=== PATIENT | female | born 1995 | race American Indian/Alaskan Native ===

== ENCOUNTER 2016-12-28 14:26 | Inpatient (IN) | payer MEDICAID ==
[2016-12-28] MEDS ORDERED: SUBLIMAZE IV PRN (16:48)
[2016-12-28] MEDS ORDERED: BRETHINE SUB-Q PRN (16:48)
[2016-12-28] MEDS ORDERED: STADOL IV PRN (16:48)
[2016-12-28] MEDS ORDERED: PHENERGAN PR PRN (16:48)
[2016-12-28] MEDS ORDERED: ePHEDrine SULFATE IV PRN (16:48)
[2016-12-28] MEDS ORDERED: BRETHINE IVP PRN (16:48)
[2016-12-28] MEDS ORDERED: ZOFRAN IV PRN (16:48)
--- NOTE | 2016-12-28 16:57 | History and Physical Report ---
History of Present Illness Date of examination: 12/28/16 Date of admission: 12/28/16 14:26 Chief complaint: 21 yo G1 at 41wk and 1 d admitted for induction for oligohydramnios (SANDRA=5) and IUGD with EFW at 10% 5#7oz. She is a recent transfer of care from [place]. AB pos, Rub Imm and GBS pos (in urine in this ). 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 Weight (lb): 168 BMI: 28.9 Pre- Weight: 130 BP: 110/ 60 mm Hg Chief Complaint/Current Status: New patient presents for missed period, she has no complaints...Candy Alexandra Menstrual History Regularity: regular Menses every: 28 days Duration: 5 LMP: 03/20/2016 LMP reliability: month known LMP character: normal test type: urine test Date: 12/03/2016 BC at conception: none Planned ? no EDC Calculations LMP: 12/25/2016 EDC Confirmation: 12/20/2016 Gestational Age: 37 4/7 weeks Past History : 1 Term Births: 0 Premature Births: 0 Living Children: 0 Para: 0 Mult. Births: 0 Prev : 0 Prev. attempt? 0 Aborta: 0 Elect. Ab: 0 Spont. 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 of genital herpes: no Genetic History Congenital Heart Defect: Mom: no Dad: no [place] Disease: Mom: no Dad: no Thalassemia Mom: no Dad: no Neural Tube Defect Mom: no Dad: no Down's Syndrome Mom: no Dad: no Sergei-Sachs Mom: no Dad: no Sickle Cell Disease/Trait Mom: no Dad: no Hemophilia Mom: no Dad: no Muscular Dystrophy Mom: no Dad: no Cystic Fibrosis Mom: no Dad: no Lewis Chorea Mom: no Dad: no Mental Retardation Mom: no Dad: no Fragile X Mom: no Dad: no Other Genetic/Chromosomal Disorder Mom: no Dad: no Child w/other defect Mom: no Dad: no Active Medications (reviewed today): VITAMINS TABS ( VIT-FE FUMARATE-FA TABS) Current Allergies (reviewed today): No known allergies Laboratory Results Date/Time Collected: 12/03/2016 Urine HCG: positive Review of Systems General Complains of fatigue. Denies fever, chills, sweats, anorexia, weakness, malaise, weight loss and sleep disorder. Complains of pelvic pain. Denies vaginal discharge, incontinence, dysuria, hematuria, urinary frequency, amenorrhea, menorrhagia, abnormal vaginal bleeding, genital sores, decreased libido, painful periods, painful sex, urinary urgency, hot flashes, vaginal dryness, vaginal itching and vaginal odor. CV Denies chest pains, palpitations, syncope, dyspnea on exertion, orthopnea, PND and peripheral edema. Resp Denies cough, dyspnea at rest, excessive sputum, hemoptysis, wheezing and pleurisy. GI Complains of abdominal pain and gas/bloating. Denies nausea, vomiting, diarrhea, constipation, change in bowel habits, melena, hematochezia, jaundice, indigestion/heartburn, dysphagia and odynophagia. Breast Denies left breast lump, right breast lump, nipple discharge, bloody discharge from nipple, breast pain, abnormal mammogram and breast enlargement. Psych Denies depression, anxiety, irritability and mood swings. PHYSICAL EXAM HEENT: normocephalic, no lesions or deformities Neck/Thyroid: supple, thyroid normal Skin no significant abnormal lesions or rashes Chest: respiratory effort normal, clear to auscultation Breasts: skin/areolae normal, no masses, no nipple discharge, no erythema/warmth /tenderness, and axillae normal. 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 Vulva/Vagina: No lesions, normal BUS, normal rugae Cervix: No lesions; no cervical motion tenderness Fundal Ht: 37 size: AGA FHT: 140s activity: + Adnexae: Unable to palpate due to uterine size Rectovaginal: exam defered Flowsheet View for Follow-up Visit Estimated weeks of gestation: 37 4/7 Weight: 168 Blood pressure: 110 / 60 Fundal height: 37 FHR: 140s Current OB Labs Hgb: 11.1 (07/06/2016) Hct: 34.8 (07/06/2016) Platelets: 383 (07/06/2016) Rubella: immune (07/06/2016) RPR: nonreactive (07/06/2016) Hep B Surface Antigen: negative (07/06/2016) HIV: negative (07/06/2016) 1 Hour GTT: 117 (09/29/2016) 32-36 Week Labs Group B Strep: negative (09/29/2016) 's Physician: undecided Education Provided: 1) Education provided today and information packet given. 2) Recommended and enrolled in the Young Parenting Program. 3) Advice on healthy diet for reviewed and information provided. 4) Stressed importance of taking folic acid and vitamins. 5) Hazards of smoking and reviewed; smoking cessation strongly encouraged and smoking cessation techniques reviewed. 6) Stressed the risks of alcohol and drug use in including risk of premature delivery, small baby (SGA), abruption, and . 7) Counseled on HIV testing. 8) No work restrictions at this time. 9) Patient agrees that all care provided and delivery performed only at [facility]. 10) Patient recieved guide book and encouraged to read. 11) Patient understands she will be delivered by the MD/CNM informatics physician liaison for the practice. Impression & Recommendations: Problem # 1: Supervision of with insufficient care, third trimester (ICD-V23.7) (STO82-K08.33) Assessment: New Past History - Obstetrical History : 1 Medications and Allergies Allergies Allergy/AdvReac Type Severity Reaction Status Date / Time No Known Allergies Allergy Unverified 12/28/16 15:30 Active Meds: Active Medications Influenza Virus Vaccine Quadrival (Fluarix Quad 8055-1316(36 Mos+)) 0.5 ml IM .ONCE ONE Stop: 12/29/16 12:01 - Vital Signs Vital signs: Vital Signs Pulse Pulse Ox 104 H 98 12/28/16 15:30 12/28/16 15:30 Temp Pulse Resp BP Pulse Ox 97.6 F 93 H 16 112/68 97 12/28/16 15:59 12/28/16 16:50 12/28/16 15:59 12/28/16 16:03 12/28/16 16:50 Results All other labs normal. Assessment and Plan - Patient Problems (1) GBS (group B streptococcus) UTI complicating Current Visit: Yes Status: Acute Qualifiers: Trimester: T (2) with 41 completed weeks gestation Current Visit: Yes Status: Acute (3) IUGR (intrauterine growth restriction) Current Visit: Yes Status: Acute (4) Oligohydramnios in mahajan in third trimester Current Visit: Yes Status: Acute
[2016-12-28] MEDS ORDERED: PITOCin/NS 20 UNIT/1000ML DRIP 20 UNITS/1,000 ML BAG IV SCH (17:00)
[2016-12-28] MEDS ORDERED: MINERAL OIL PO PRN (17:08)
[2016-12-28 17:59] LABS: Hemoglobin 10.9 gm/dl (10.1-14.3); Mean Corpuscular HGB Conc 33 % (30-34); Mean Corpuscular Hemoglobin 27 pg (28-32); Mean Corpuscular Volume 83 fl (79-97); Platelet Count 292 K/mm3 (140-440); Red Blood Count 4.01 M/mm3 (3.65-5.03); Red Cell Distribution Width 14.9 % (13.2-15.2); White Blood Count 9.5 K/mm3 (4.5-11.0)
[2016-12-28] MEDS ORDERED: CERVIDIL VG ONE (18:00)
[2016-12-28] MEDS ORDERED: XYLOCAINE 2% INFILTRATI ONE (18:00)
[2016-12-28] MEDS ORDERED: PITOCin/NS 30 UNIT/500ML 30 UNITS/500 ML BAG IV SCH (18:00)
[2016-12-28] MEDS: LACTATED RINGERS 1,000 ML IV SCH (19:30)
[2016-12-28] MEDS ORDERED: POLYCILLIN/NS 1 GM/50 ML 1 GM/50 ML BAG IV SCH (20:50)
[2016-12-28] MEDS ORDERED: AMBIEN PO PRN (23:03)
[2016-12-29] MEDS ORDERED: POLYCILLIN/NS 2 GM/100 ML 2 GM/100 ML BAG IV ONE (00:15)
[2016-12-29] MEDS: LACTATED RINGERS 1,000 ML IV SCH ×2 (02:19→03:37)
--- NOTE | 2016-12-29 03:18 | Anesthesia Consultation ---
Anesthesia Consult and Med Hx Date of service: 12/29/16 - Airway Anesthetic Teeth Evaluation: Good ROM Head & Neck: Adequate Mental/Hyoid Distance: Adequate Mallampati Class: Class II Intubation Access Assessment: Probably Good - Pulmonary Exam CTA: Yes - Cardiac Exam Cardiac Exam: RRR - Pre-Operative Health Status ASA Pre-Surgery Classification: ASA2 Proposed Anesthetic Plan: Epidural - Pulmonary Hx Asthma: No COPD: No Hx Pneumonia: No - Cardiovascular System Hx Hypertension: No - Central Nervous System Hx Seizures: No Hx Psychiatric Problems: No - Endocrine Hx Renal Disease: No Hx End Stage Renal Disease: No Hx Hypothyroidism: No Hx Hyperthyroidism: No - Hematic Hx Anemia: No Hx Sickle Cell Disease: No - Other Systems Hx Alcohol Use: No
[2016-12-29] MEDS ORDERED: NARCAN 2 MG/2 ML IV PRN (03:19)
[2016-12-29] MEDS ORDERED: ePHEDrine SULFATE IV PRN (03:19)
[2016-12-29] MEDS ORDERED: ePHEDrine SULFATE ONE (03:31)
[2016-12-29] MEDS ORDERED: fentaNYL-BUPIV 2 MCG/ML-0.125% 200 MCG/100 ML BAG EPIDURAL SCH (04:00)
--- NOTE | 2016-12-29 06:40 | Progress Note ---
Assessment and Plan Pt comfortable with epidural SVE 9,C,0 ISE applied. Maternal HR 130-140 Pt states she is just very anxious. BP 130/70 Cat 1 strip Pit @ 6mu Anticipate delivery Subjective - Subjective Date of service: 12/29/16 (maternal tachycardia) Patient reports: movement normal Objective - Vital Signs Vital Signs: Vital Signs - 12hr 12/28/16 12/28/16 12/28/16 19:25 19:30 19:35 Temperature Pulse Rate 115 H 119 H 113 H Respiratory Rate Blood Pressure Blood Pressure [Right] O2 Sat by Pulse 98 97 99 Oximetry 12/28/16 12/28/16 12/28/16 19:40 19:43 19:45 Temperature 97.7 F Pulse Rate 119 H 115 H 117 H Respiratory Rate Blood Pressure Blood Pressure 122/60 [Right] O2 Sat by Pulse 97 97 Oximetry 12/28/16 12/28/16 12/28/16 19:48 19:50 19:55 Temperature Pulse Rate 109 H 114 H 111 H Respiratory Rate Blood Pressure 122/60 Blood Pressure [Right] O2 Sat by Pulse 98 97 Oximetry 12/28/16 12/28/16 12/28/16 20:00 20:05 20:10 Temperature Pulse Rate 115 H 115 H 114 H Respiratory Rate Blood Pressure Blood Pressure [Right] O2 Sat by Pulse 98 98 97 Oximetry 12/28/16 12/28/16 12/28/16 20:15 20:18 20:20 Temperature Pulse Rate 119 H 121 H 112 H Respiratory Rate Blood Pressure 113/58 Blood Pressure [Right] O2 Sat by Pulse 96 97 Oximetry 12/28/16 12/28/16 12/28/16 20:25 20:30 20:35 Temperature Pulse Rate 115 H 111 H 115 H Respiratory Rate Blood Pressure Blood Pressure [Right] O2 Sat by Pulse 97 96 97 Oximetry 12/28/16 12/28/16 12/28/16 20:40 20:45 20:49 Temperature Pulse Rate 112 H 118 H 113 H Respiratory Rate Blood Pressure 121/65 Blood Pressure [Right] O2 Sat by Pulse 98 97 Oximetry 12/28/16 12/28/16 12/28/16 20:50 20:55 21:00 Temperature Pulse Rate 118 H 115 H 106 H Respiratory Rate Blood Pressure Blood Pressure [Right] O2 Sat by Pulse 98 97 97 Oximetry 10/12/28/16 12/28/16 21:05 21:10 21:25 Temperature Pulse Rate 114 H 116 H 111 H Respiratory Rate Blood Pressure Blood Pressure [Right] O2 Sat by Pulse 98 98 97 Oximetry 12/28/16 12/28/16 12/28/16 21:30 21:35 21:40 Temperature Pulse Rate 114 H 111 H 111 H Respiratory Rate Blood Pressure Blood Pressure [Right] O2 Sat by Pulse 97 97 97 Oximetry 12/28/16 12/28/16 12/28/16 21:45 21:50 21:54 Temperature Pulse Rate 110 H 118 H 115 H Respiratory Rate Blood Pressure 129/83 Blood Pressure [Right] O2 Sat by Pulse 97 97 Oximetry 12/28/16 12/28/16 12/28/16 21:55 22:00 22:05 Temperature Pulse Rate 124 H 115 H 114 H Respiratory Rate Blood Pressure Blood Pressure [Right] O2 Sat by Pulse 97 98 98 Oximetry 12/28/16 12/28/16 12/28/16 22:10 22:15 22:20 Temperature Pulse Rate 114 H 107 H 112 H Respiratory Rate Blood Pressure Blood Pressure [Right] O2 Sat by Pulse 97 97 97 Oximetry 12/28/16 12/28/16 12/28/16 22:25 22:30 22:35 Temperature Pulse Rate 115 H 106 H 106 H Respiratory Rate Blood Pressure Blood Pressure [Right] O2 Sat by Pulse 97 96 96 Oximetry 12/28/16 12/28/16 12/28/16 22:40 22:45 22:50 Temperature Pulse Rate 107 H 102 H 107 H Respiratory Rate Blood Pressure Blood Pressure [Right] O2 Sat by Pulse 97 97 97 Oximetry 12/28/16 12/28/16 12/28/16 22:53 22:55 23:00 Temperature Pulse Rate 107 H 112 H 106 H Respiratory Rate Blood Pressure 128/81 Blood Pressure [Right] O2 Sat by Pulse 98 98 Oximetry 12/28/16 12/28/16 12/28/16 23:05 23:10 23:15 Temperature Pulse Rate 111 H 115 H 108 H Respiratory Rate Blood Pressure Blood Pressure [Right] O2 Sat by Pulse 96 96 97 Oximetry 12/28/16 12/28/16 12/28/16 23:20 23:25 23:30 Temperature Pulse Rate 102 H 109 H 104 H Respiratory Rate Blood Pressure Blood Pressure [Right] O2 Sat by Pulse 97 97 96 Oximetry 12/28/16 12/28/16 12/28/16 23:35 23:40 23:45 Temperature Pulse Rate 100 H 102 H 110 H Respiratory Rate Blood Pressure Blood Pressure [Right] O2 Sat by Pulse 98 97 95 Oximetry 12/28/16 12/28/16 12/28/16 23:50 23:53 23:55 Temperature Pulse Rate 105 H 105 H 103 H Respiratory Rate Blood Pressure 116/57 Blood Pressure [Right] O2 Sat by Pulse 96 94 97 Oximetry 12/29/16 12/29/16 12/29/16 00:00 00:05 00:10 Temperature Pulse Rate 114 H 111 H 113 H Respiratory Rate Blood Pressure Blood Pressure [Right] O2 Sat by Pulse 97 96 98 Oximetry 12/29/16 12/29/16 12/29/16 00:15 00:18 00:20 Temperature Pulse Rate 111 H 112 H Respiratory 18 Rate Blood Pressure Blood Pressure [Right] O2 Sat by Pulse 96 97 Oximetry 12/29/16 12/29/16 12/29/16 00:25 00:26 00:30 Temperature Pulse Rate 108 H 107 H 106 H Respiratory Rate Blood Pressure Blood Pressure [Right] O2 Sat by Pulse 95 94 95 Oximetry 12/29/16 12/29/16 12/29/16 00:32 00:35 00:38 Temperature Pulse Rate 101 H 111 H 99 H Respiratory Rate Blood Pressure Blood Pressure [Right] O2 Sat by Pulse 94 95 94 Oximetry 12/29/16 12/29/16 12/29/16 00:40 00:43 00:45 Temperature Pulse Rate 110 H 107 H 101 H Respiratory Rate Blood Pressure Blood Pressure [Right] O2 Sat by Pulse 95 94 96 Oximetry 12/29/16 12/29/16 12/29/16 00:50 00:51 00:55 Temperature Pulse Rate 107 H 111 H 108 H Respiratory Rate Blood Pressure Blood Pressure [Right] O2 Sat by Pulse 96 93 96 Oximetry 12/29/16 12/29/16 12/29/16 01:00 01:05 01:10 Temperature Pulse Rate 110 H 105 H 113 H Respiratory Rate Blood Pressure Blood Pressure [Right] O2 Sat by Pulse 99 99 98 Oximetry 12/29/16 12/29/16 12/29/16 01:15 01:20 01:34 Temperature Pulse Rate 109 H 111 H 111 H Respiratory Rate Blood Pressure Blood Pressure [Right] O2 Sat by Pulse 99 99 98 Oximetry 12/29/16 12/29/16 12/29/16 01:45 01:50 01:55 Temperature Pulse Rate 116 H 110 H 94 H Respiratory Rate Blood Pressure Blood Pressure [Right] O2 Sat by Pulse 95 99 100 Oximetry 12/29/16 12/29/16 12/29/16 02:00 02:05 02:10 Temperature Pulse Rate 106 H 111 H 99 H Respiratory Rate Blood Pressure Blood Pressure [Right] O2 Sat by Pulse 100 99 99 Oximetry 12/29/16 12/29/16 12/29/16 02:15 02:20 02:25 Temperature Pulse Rate 100 H 104 H 113 H Respiratory Rate Blood Pressure Blood Pressure [Right] O2 Sat by Pulse 99 100 99 Oximetry 12/29/16 12/29/16 12/29/16 02:30 02:35 02:40 Temperature Pulse Rate 113 H 103 H 115 H Respiratory Rate Blood Pressure Blood Pressure [Right] O2 Sat by Pulse 99 100 100 Oximetry 12/29/16 12/29/16 12/29/16 02:45 02:50 02:55 Temperature Pulse Rate 109 H 111 H 108 H Respiratory Rate Blood Pressure Blood Pressure [Right] O2 Sat by Pulse 99 99 97 Oximetry 12/29/16 12/29/16 12/29/16 03:00 03:05 03:07 Temperature Pulse Rate 122 H 123 H 108 H Respiratory Rate Blood Pressure 140/86 145/96 Blood Pressure [Right] O2 Sat by Pulse 100 100 Oximetry 12/29/16 12/29/16 12/29/16 03:09 03:10 03:11 Temperature Pulse Rate 111 H 111 H 118 H Respiratory Rate Blood Pressure 147/77 149/72 Blood Pressure [Right] O2 Sat by Pulse 100 Oximetry 12/29/16 12/29/16 12/29/16 03:13 03:15 03:17 Temperature Pulse Rate 116 H 117 H 125 H Respiratory Rate Blood Pressure 148/72 154/97 154/84 Blood Pressure [Right] O2 Sat by Pulse 100 Oximetry 12/29/16 12/29/16 12/29/16 03:19 03:20 03:21 Temperature Pulse Rate 129 H 136 H 131 H Respiratory Rate Blood Pressure 137/65 132/61 Blood Pressure [Right] O2 Sat by Pulse 100 Oximetry 12/29/16 12/29/16 12/29/16 03:23 03:25 03:27 Temperature Pulse Rate 121 H 119 H 118 H Respiratory Rate Blood Pressure 120/58 102/52 100/54 Blood Pressure [Right] O2 Sat by Pulse 100 Oximetry 12/29/16 12/29/16 12/29/16 03:29 03:30 03:31 Temperature Pulse Rate 114 H 120 H 123 H Respiratory Rate Blood Pressure 121/56 106/52 Blood Pressure [Right] O2 Sat by Pulse 99 Oximetry 12/29/16 12/29/16 12/29/16 03:33 03:35 03:37 Temperature Pulse Rate 120 H 107 H 115 H Respiratory Rate Blood Pressure 124/59 124/59 124/72 Blood Pressure [Right] O2 Sat by Pulse 99 Oximetry 12/29/16 12/29/16 12/29/16 03:39 03:40 03:41 Temperature Pulse Rate 114 H 118 H 111 H Respiratory Rate Blood Pressure 127/73 144/75 Blood Pressure [Right] O2 Sat by Pulse 100 Oximetry 12/29/16 12/29/16 12/29/16 03:43 03:45 03:47 Temperature Pulse Rate 109 H 101 H 108 H Respiratory Rate Blood Pressure 139/71 133/72 130/69 Blood Pressure [Right] O2 Sat by Pulse 99 Oximetry 12/29/16 12/29/16 12/29/16 03:49 03:50 03:51 Temperature Pulse Rate 117 H 115 H 118 H Respiratory Rate Blood Pressure 127/68 125/61 Blood Pressure [Right] O2 Sat by Pulse 99 Oximetry 12/29/16 12/29/16 12/29/16 03:55 04:00 04:05 Temperature Pulse Rate 107 H 97 H 112 H Respiratory Rate Blood Pressure Blood Pressure [Right] O2 Sat by Pulse 99 99 99 Oximetry 12/29/16 12/29/16 12/29/16 04:10 04:15 04:20 Temperature Pulse Rate 101 H 99 H 112 H Respiratory Rate Blood Pressure Blood Pressure [Right] O2 Sat by Pulse 99 99 99 Oximetry 12/29/16 12/29/16 12/29/16 04:21 04:25 04:30 Temperature Pulse Rate 110 H 105 H 103 H Respiratory Rate Blood Pressure 105/59 Blood Pressure [Right] O2 Sat by Pulse 99 99 Oximetry 12/29/16 12/29/1617 04:35 04:40 04:45 Temperature Pulse Rate 143 H 150 H 146 H Respiratory Rate Blood Pressure Blood Pressure [Right] O2 Sat by Pulse 99 100 99 Oximetry 12/29/16 12/29/16 12/29/16 04:50 04:51 04:52 Temperature Pulse Rate 124 H 148 H 142 H Respiratory Rate Blood Pressure 119/62 105/54 Blood Pressure [Right] O2 Sat by Pulse 100 Oximetry 12/29/16 12/29/16 12/29/16 04:55 05:00 05:05 Temperature Pulse Rate 129 H 130 H 131 H Respiratory Rate Blood Pressure Blood Pressure [Right] O2 Sat by Pulse 99 99 100 Oximetry 12/29/16 12/29/16 12/29/16 05:10 05:15 05:20 Temperature Pulse Rate 143 H 133 H 127 H Respiratory Rate Blood Pressure Blood Pressure [Right] O2 Sat by Pulse 100 100 100 Oximetry 12/29/16 12/29/16 12/29/16 05:21 05:25 05:30 Temperature Pulse Rate 134 H 119 H 126 H Respiratory Rate Blood Pressure 131/73 Blood Pressure [Right] O2 Sat by Pulse 99 100 Oximetry 12/29/16 12/29/16 12/29/16 05:35 05:40 05:45 Temperature Pulse Rate 128 H 126 H 159 H Respiratory Rate Blood Pressure Blood Pressure [Right] O2 Sat by Pulse 99 99 100 Oximetry 12/29/16 12/29/16 12/29/16 05:50 05:53 05:55 Temperature Pulse Rate 164 H 146 H 163 H Respiratory Rate Blood Pressure 134/76 Blood Pressure [Right] O2 Sat by Pulse 100 100 Oximetry 12/29/16 12/29/16 12/29/16 06:00 06:05 06:10 Temperature Pulse Rate 127 H 134 H 128 H Respiratory Rate Blood Pressure Blood Pressure [Right] O2 Sat by Pulse 100 100 100 Oximetry 12/29/16 12/29/16 12/29/16 06:15 06:20 06:23 Temperature Pulse Rate 131 H 124 H 129 H Respiratory Rate Blood Pressure 131/79 Blood Pressure [Right] O2 Sat by Pulse 99 99 Oximetry 12/29/16 12/29/16 12/29/16 06:25 06:30 06:35 Temperature Pulse Rate 131 H 122 H 127 H Respiratory Rate Blood Pressure Blood Pressure [Right] O2 Sat by Pulse 99 99 99 Oximetry - Exam Breasts: deferred Cardiovascular: Regular rate Lungs: Normal air movement Abdomen: Present: normal appearance, soft. Absent: distention, tenderness Uterus: Present: normal FHR: auscultation normal, category 1 Uterine Contraction Monitor Mode: Internal Cervical Dilatation: 9 (ISE applied) Cervical Effacement Percentage: 100 station: 0 Uterine Contraction Pattern: Regular Uterine Tone Measurement Phase: Resting Uterine Contraction Intensity: Moderate Extremities: normal Deep Tendon Reflex Grade: Normal +2 - Labs Labs: Abnormal Labs 12/28/16 15:12 MCH 27 L Laboratory Results - last 24 hr 12/28/16 12/28/16 15:12 15:12 WBC 9.5 RBC 4.01 Hgb 10.9 Hct 33.0 MCV 83 MCH 27 L MCHC 33 RDW 14.9 Plt Count 292 Blood Type AB POSITIVE Antibody Screen Negative
[2016-12-29] MEDS ORDERED: BENADRYL PO PRN (07:25)
[2016-12-29] MEDS ORDERED: NORCO 5/325 PO PRN (07:25)
[2016-12-29] MEDS ORDERED: TUCKS PAD TP PRN (07:25)
[2016-12-29] MEDS ORDERED: PERCOCET 5/325 PO PRN (07:25)
[2016-12-29] MEDS ORDERED: TYLENOL PO PRN (07:25)
[2016-12-29] MEDS ORDERED: PHENERGAN PO PRN (07:25)
[2016-12-29] MEDS ORDERED: LANSINOH TP PRN (07:25)
--- NOTE | 2016-12-29 07:33 | Procedure Note ---
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 Estimated blood loss: 300cc - Vaginal Delivery presentation: vertex Delivery position: OA Intrapartum events: PROM->1hr before delivery, mult.variable deceleratio, other( please specify) (IUGR ; [place]) Delivery induction: oxytocin Delivery augmentation: pitocin Delivery monitor: external uterine, internal FHT Route of delivery: Delivery placenta: spontaneous Delivery cord: nuchal cord Episiotomy: midline Delivery laceration: 2nd degree Delivery repair: vicryl Anesthesia: epidural Delivery comments: live born male over second degree episiotomy Baby to mom's abdomen skin to skin Cord clamped and cut Placenta and membrane delivered complete and intact, 3 vessel cord. Pit IVFs. Repair with 3-0 vicryl in usual fashion. 8/9, EBL 300, Wgt 5-13. Mom and baby remain LDR stable. - Infant A at 1 minute: 8 at 5 minutes: 9 Infant Gender: Male (wgt 5-13)
[2016-12-29] MEDS ORDERED: MOTRIN PO SCH (08:00)
[2016-12-29] MEDS ORDERED: SODIUM CHLORIDE FLUSH SYRINGE 10 ML IV NR (08:00)
[2016-12-29] MEDS ORDERED: DULCOLAX PR PRN (10:00)
[2016-12-29] MEDS: PRENATAL VITAMIN PO SCH (10:36)
[2016-12-29] MEDS: COLACE PO SCH ×2 (10:36→22:26)
[2016-12-29] MEDS: MOTRIN PO SCH ×2 (10:50→22:26)
[2016-12-29] MEDS ORDERED: Fluarix Quad 2017-2018(36 MOS+) IM ONE (12:00)
[2016-12-29 19:57] LABS: Hematocrit 28.4 % (30.3-42.9); Hemoglobin 9.3 gm/dl (10.1-14.3)
[2016-12-29] MEDS ORDERED: MILK OF MAGNESIA PO PRN (22:00)
[2016-12-30] MEDS ORDERED: BOOSTRIX IM ONE (06:00)
--- NOTE | 2016-12-30 08:00 | Progress Note ---
Assessment and Plan patient doing well this morning, no complaints. Family at bedside with . Lochia scant, afebrile, pulse tachycardic in the low 100's, b/p mostly normal with one outlier of 146/87. H&H 9.3/28.4, asymptomatic for anemia d/t blood loss - acute, patient without difficulty. desires d/c home today, will continue to monitor vital signs, can d/c home if stable. - Patient Problems (1) Spontaneous vaginal delivery Current Visit: Yes Status: Acute Subjective - Subjective Date of service: 12/30/16 Principal diagnosis: day #1 s/p Patient reports: appetite normal, voiding normally, pain well controlled, ambulating normally, no dizzy ambulation, no nauseated : doing well, nursing well Objective - Vital Signs Latest vital signs: Vital Signs Temp Pulse Resp BP BP Pulse Ox 12/30/16 05:54 18 12/30/16 01:48 98.8 F 111 H 20 115/74 12/29/16 17:10 98.3 F 90 19 146/87 12/29/16 09:31 98.2 F 113 H 18 106/57 98 12/29/16 08:37 124 H 97 12/29/16 08:32 127 H 97 12/29/16 08:27 125 H 98 12/29/16 08:24 127 H 135/81 12/29/16 08:22 98.9 F 125 H 14 135/81 98 12/29/16 08:21 126 H 135/78 12/29/16 08:17 130 H 97 12/29/16 08:12 129 H 96 12/29/16 08:07 136 H 97 12/29/16 08:02 130 H 97 12/29/16 07:57 132 H 98 Intake and Output 12/29/16 12/29/16 12/30/16 15:59 23:59 07:59 Intake Total 240 240 Output Total 350 Balance -110 240 Intake: Oral 240 120 Intake, Free Water 120 Output: Urine 350 Void 350 Other: Total, Intake Amount 240 120 Total, Output Amount 350 # Voids Void 1 - Exam Breasts: Present: normal, Cardiovascular: Present: Regular rate Lungs: Present: Clear to auscultation, Normal air movement Abdomen: Present: normal appearance, soft Vulva: both: atrophy Uterus: Present: normal, firm, fundal height at umbilicus Extremities: Present: normal Deep Tendon Reflex Grade: Normal +2 Incision: Present: normal, dry, intact - Labs Labs: Abnormal lab results 12/29/16 Range/Units 19:30 Hgb 9.3 L (10.1-14.3) gm/dl Hct 28.4 L (30.3-42.9) %
--- NOTE | 2016-12-30 08:05 | Discharge Summary ---
Providers - Providers Date of Admission: 12/28/16 14:26 Date of discharge: 12/30/16 (patient desired d/c home) Attending physician: CLAUDE MARVIN Primary care physician: CLAUDE MARVIN Hospitalization Reason for admission: active labor Delivery: Episiotomy: midline Incision: normal, dry, intact Other procedures: none complications: none Discharge diagnosis: IUP at term delivered [place] baby: male Hospital course: uncomplicated vaginal Condition at discharge: Good Disposition: DC-01 TO HOME OR SELFCARE - Discharge Diagnoses (1) Spontaneous vaginal delivery Status: Acute Plan - Discharge Medications Prescriptions: Ibuprofen [Motrin 800 MG tab] 800 mg PO Q8HR PRN #30 tablet PRN Reason: Pain Lidocain2.5%/Prilocai2.5% [Emla] 5 gm TP ONCE PRN #1 tube PRN Reason: Pain - Provider Discharge Summary Activity: routine, no sex for 6 weeks, no heavy lifting 4 weeks, no strenuous exercise Diet: routine Instructions: routine Additional instructions: [] Smoking cessation referral if applicable(refer to patient education folder for contact #) [] Refer to [facility]'s [facility] Booklet Call your doctor immediately for: * Fever > 100.5 * Heavy vaginal bleeding ( >1 pad per hour) * Severe persistent headache * Shortness of breath * Reddened, hot, painful area to leg or breast * Drainage or odor from incision. * Keep incision clean and dry at all times and follow doctor's instructions regarding bathing/showering - Follow up plan Follow up: CLAUDE MARVIN MD [Primary Care Provider] - 7 Days (Congratulations!! Please call [phone] to schedule your son's circumcision in 1 week and your visit in 4 weeks. Bring EMLA cream to your son's appointment and await futher instructions. Call for any questions or concerns. )
--- NOTE | 2016-12-30 11:00 | Progress Note ---
Subjective Date of service: 12/30/16 Principal diagnosis: day #1 s/p Interval history: 1st day after normal vaginal delivery Patient is in the bed, comfortable. Pain is well controlled with pain meds. Ambulated well. No residual neurological deficit. No anesthesia complications Objective - Constitutional Vitals: Vital Signs - 12hr 12/30/16 12/30/16 12/30/16 01:48 05:54 07:45 Temperature 98.8 F 98.9 F Pulse Rate 111 H 80 Respiratory 20 18 20 Rate Blood Pressure 115/74 104/50 [Right] - Labs CBC & Chem 7: 12/29/16 19:30 Labs: Abnormal lab results 12/29/16 Range/Units 19:30 Hgb 9.3 L (10.1-14.3) gm/dl Hct 28.4 L (30.3-42.9) %
[2016-12-30] MEDS: PRENATAL VITAMIN PO SCH (12:00)
[2016-12-30] MEDS ORDERED: M-M-R II VACCINE SUB-Q ONE (12:00)
[2016-12-30] MEDS: COLACE PO SCH (12:00)
[2016-12-30 18:12] VITALS: BP 134/70
== END 2016-12-30 14:00 | disposition home or self-care (01) | DRG 775 ==
LOC: LD 14:26 → OB 12-29 09:11
PROVIDERS: ADMIT Obstetrics & Gynecology; ATTEND Obstetrics & Gynecology
PROC: 10E0XZZ Delivery of Products of Conception, External Approach (ICD-10-PCS; principal; 2016-12-29)
PROC: 0KQM0ZZ Repair Perineum Muscle, Open Approach (ICD-10-PCS; 2016-12-29)
PROC: 0W8NXZZ Division of Female Perineum, External Approach (ICD-10-PCS; 2016-12-29)
PROC: 3E0S3BZ Introduction of Anesthetic Agent into Epidural Space, Percutaneous Approach (ICD-10-PCS; 2016-12-29)
PROC: 00HU33Z Insertion of Infusion Device into Spinal Canal, Percutaneous Approach (ICD-10-PCS; 2016-12-29)
PROC: 3E0P3VZ Introduction of Hormone into Female Reproductive, Percutaneous Approach (ICD-10-PCS; 2016-12-29)
DX: O23.43 Unspecified infection of urinary tract in pregnancy, third trimester (principal); O41.03X0 Oligohydramnios, third trimester, not applicable or unspecified; O69.81X0 Labor and delivery complicated by cord around neck, without compression, not applicable or unspecified; O42.02 Full-term premature rupture of membranes, onset of labor within 24 hours of rupture; O36.5930 Maternal care for other known or suspected poor fetal growth, third trimester, not applicable or unspecified; O99.820 Streptococcus B carrier state complicating pregnancy; O70.1 Second degree perineal laceration during delivery; Z3A.41 41 weeks gestation of pregnancy; Z37.0 Single live birth; O99.02 Anemia complicating childbirth; D64.89 Other specified anemias
CPT/HCPCS: 36415; 59200; 85014; 85018; 85027; 86592; 86850; 86900; 86901; 90686; 99211; A6250; G0463; J0290; J0595; J2590; J3010; J7120